=== PATIENT | male | born 1960 | race Caucasian/White ===

== ENCOUNTER → 2021-08-29 09:15 | Outpatient (CLI) | payer BC, SELFPAY ==
--- NOTE | ~2021-08-29 | CT_ITS ---
EXAMINATION: CT lung screening DATE: 08/29/2021 09:28 INDICATION: Personal history of nicotine dependence TECHNIQUE: Computed tomography (CT) of the chest was performed without intravenous contrast. The dose -length product was 225.10 mGy-cm. Automated exposure control and iterative reconstruction technique were employed. COMPARISON: No prior studies for comparison. FINDINGS: No thoracic lymphadenopathy. No significant pleural or pericardial effusion. No evidence fo r aortic aneurysm or dissection. The upper abdomen is unremarkable. There is evidence for chronic gra nulomatous disease. Mild emphysema. No focal airspace consolidation. Calcified granuloma right lower lobe. No pneumothorax. No endobronchial lesions. No lytic or blastic lesions. No acute osseous abnorm ality. IMPRESSION: 1. Lung-RADS category 1: Negative. Continue annual screening with noncontrast low-dose chest CT in 12 months. Reviewed, dictated and finalized at location A. DIRECTOR IMPRESSION: 1. Lung-RADS category 1: Negative. Continue annual screening with noncontrast l ow-dose chest CT in 12 months.
== END ==
PROVIDERS: PCP Internal Medicine; Visit Provider Internal Medicine
DX: Z87.891 Personal history of nicotine dependence (principal)
CPT/HCPCS: 71271

== ENCOUNTER 2021-12-03 00:21 | Day surgery (SDC) | payer BC, SELFPAY ==
[2021-11-19 13:39] VITALS: BMI 31.2
[2021-12-03 06:31] VITALS: BP 138/94; PULSE 101; RESP 20; TEMP 36.3; O2SAT 99; BMI 33.0
[2021-12-03] MEDS: LACTATED RINGERS 1,000 ML 150 ML IV CONT (06:40)
--- NOTE | 2021-12-03 07:17 | P.PNAN_ITS ---
Anes - Initial Pre Proc Eval Procedure: Operation Date: 12/03/21 07:30 Proposed Procedures p Screening Colonoscopy - Gunnar Holliday MD Date/Time: 12/03/21 07:17 Surgeon: Gunnar Holliday MD Pre Op Diagnosis: neoplasm screening Patient Data Age: 61 Gender: M Height: 1.83 m Weight: 110.5 kg Last Vital Signs Temp 97.4 F L 12/03/21 06:31 Pulse 101 H 12/03/21 06:31 Resp 20 12/03/21 06:31 BP 138/94 H 12/03/21 06:31 Pulse Ox 99 12/03/21 06:31 Allergies Allergy/AdvReac Type Severity Reaction Status Date / Time No Known Allergies Allergy Verified 11/19/21 13:38 Home Medications Medication Instructions Recorded Confirmed Type naproxen sodium 220 mg tablet 220 mg PO BID PRN 08/13/21 11/19/21 History Patient hx anesthesia problems: none Family hx anesthesia problems: none Results Review: All pre-operative results and documents have been reviewed as part of the pre-operative evaluation. [facility] Past Medical History Medical History (Updated 09/02/21 @ 07:33 by Ian Freeman MD) Heartburn Family History Family History (Updated 08/13/21 @ 08:50 by Keri Buckner CNA) Mother Cerebrovascular accident Grandparent Breast cancer Alcoholism Lung cancer Social History Social History (Updated 08/13/21 @ 09:12 by Keri Buckner CNA) Smoking packs per day: 1.5 Smoking cigarettes per day: 30.0 Years smoked: 40 Smoking pack-years: 60.00 Smoking status: Current every day smoker Tobacco type: cigarettes Alcohol intake: current Drinks per week: 1 Alcohol use details: Social drinking Substance use: never Substance use type: does not use Living arrangements: alone Spiritual care concerns: No Anes - Eval Final PreProcedure Day of Procedure 12/03/21 07:17 Patient weight: obese Heart: regular rate and rhythm Lungs: clear to auscultation Airway: Mallampati scale Neurological: alert and oriented Last oral intake: >/= 8 hours ASA classification: II Emergent: no Anesthetic plan: proceed Anesthesia type and monitoring: general GIVS and standard monitoring Results Review: All pre-operative results and documents have been reviewed as part of the pre-operative evaluation. Informed Consent: The patient's anesthetic plan and its attendant risks and benefits were discussed with the patient/family/POA. Questions were solicited and answers provided to the satisfaction of the patient/family/POA.
--- NOTE | 2021-12-03 07:24 | WPDGICN ---
Assessment and Plan Assessment and plan (1) Family history of colonic polyps: Code(s): Z83.71 - Family history of colonic polyps Status: Acute Assessment and Plan: Patient's father had colon polyps. For this reason screening colonoscopy has been advised. Further recommendations will be given after endoscopy. GI Consult Note Consult date/time: 12/03/21 07:24 HPI: Johnnie Atkinson is a 61 year old male Presents for screening colonoscopy. Patient reports his current weight appetite and bowel movements are normal. He denies abdominal pain. He has had no bleeding. Family history is significant his father had colon polyps. Patient's last colonoscopy 6 years ago was unremarkable. He presents today for neoplasia screening. Review of Systems Review of Systems: All systems reviewed & are unremarkable except as noted in HPI and below PMFSH Past Medical History Medical History (Updated 12/03/21 @ 07:25 by Gunnar Holliday MD) Heartburn Family History Family History (Updated 08/13/21 @ 08:50 by Keri Buckner CNA) Mother Cerebrovascular accident Grandparent Breast cancer Alcoholism Lung cancer Social History Social History (Updated 08/13/21 @ 09:12 by Keri Buckner CNA) Smoking packs per day: 1.5 Smoking cigarettes per day: 30.0 Years smoked: 40 Smoking pack-years: 60.00 Smoking status: Current every day smoker Tobacco type: cigarettes Alcohol intake: current Drinks per week: 1 Alcohol use details: Social drinking Substance use: never Substance use type: does not use Living arrangements: alone Spiritual care concerns: No Meds Home Medications and Allergies Home Medications Medication Instructions Recorded Confirmed Type naproxen sodium 220 mg tablet 220 mg PO BID PRN 08/13/21 11/19/21 History Allergies Allergy/AdvReac Type Severity Reaction Status Date / Time No Known Allergies Allergy Verified 11/19/21 13:38 Vital Signs Vital Signs - 24 hr 12/03/21 06:31 Temperature 97.4 F L Pulse Rate 101 H Respiratory Rate 20 Blood Pressure 138/94 H Pulse Oximetry 99 Exam Narrative: Physical exam reveals patient be alert. Vital signs stable. HEENT exam is unremarkable. Patient is anicteric. Lungs are clear to auscultation and percussion. Heart is without murmur or extra sounds. Abdomen bowel sounds are present soft nontender with no organomegaly. Digital external rectal exam is normal.
[2021-12-03 07:47] VITALS: BP 136/85; PULSE 85; RESP 16; O2SAT 95
[2021-12-03 07:55] VITALS: BP 131/87; PULSE 74; RESP 16; O2SAT 97
[2021-12-03 08:07] VITALS: BP 145/99; PULSE 73; RESP 14; O2SAT 99
== END 2021-12-03 08:18 | disposition home or self-care (01) ==
PROVIDERS: PCP Internal Medicine; Visit Provider Internal Medicine Gastroenterology
PROC: 0DJD8ZZ Inspection of Lower Intestinal Tract, Via Natural or Artificial Opening Endoscopic (ICD-10-PCS; CPT 45378; principal; 2021-12-03 07:30)
DX: Z12.11 Encounter for screening for malignant neoplasm of colon (principal); K64.8 Other hemorrhoids; Z83.71 Family history of colonic polyps; R12 Heartburn; F17.210 Nicotine dependence, cigarettes, uncomplicated; E66.9 Obesity, unspecified; Z68.33 Body mass index [BMI] 33.0-33.9, adult
CPT/HCPCS: 45378; J2704; J7120

== ENCOUNTER 2022-11-10 12:34 | Outpatient (CLI) | payer BC, SELFPAY ==
--- NOTE | ~2022-11-10 | US_ITS ---
EXAMINATION: US soft tissue UE LT DATE: 11/10/2022 12:56 INDICATION: Localized swelling, mass and lump, left upper extremity. TECHNIQUE: Multiple grayscale and Doppler ultrasound images of the left upper extremity were obtained . COMPARISON: Chest CT 08/29/2021 FINDINGS: In the left upper extremity near the shoulder, there is a 2.2 x 2.0 x 0.9 cm subcutaneous m ass that is slightly hyperechoic to normal subcutaneous fat with similar echotexture to subcutaneous fat. IMPRESSION: 1. 2.2 cm subcutaneous mass near left shoulder, likely a lipoma. Reviewed, dictated and finalized at location A. NESS DEVELOPMENT OFFICER
== END 2022-11-10 12:35 | disposition home or self-care (01) ==
PROVIDERS: PCP Internal Medicine; Visit Provider Surgery
DX: R22.32 Localized swelling, mass and lump, left upper limb (principal)
CPT/HCPCS: 76882

== ENCOUNTER 2022-11-20 01:22 | Day surgery (SDC) | payer BC, SELFPAY ==
[2022-11-04 17:20] VITALS: BMI 32.5
--- NOTE | 2022-11-04 17:28 | PC.NURSE ---
Addendum entered by Sarah Navarro RN 11/17/22 13:07: PT TO ARRIVE AT 1330 ON 11/20/22 FOR SURGERY AT 1430. MAY HAVE LIGHT MEAL AND MAY DRIVE SELF HOME. Original Note: Report to the Outpatient Waiting Room, entrance under the green pavilion located off [facility], at time 1300 on date 11/19/22. Planned Procedure Time: 1400. Time changes happen often and if your time is changed the preop area will call you the afternoon before. - You and your visitor will be asked to self-screen and do not enter if you have any COVID symptoms. - Only one visitor is requested with a max of two and NO children visitors are allowed at this time. - The patient visitor may be requested to leave or wait in car when not with patient due to distancing restrictions. - A mask is optional within the hospital. Take the following medications with a SIP of water the morning of surgery:N/A Medications to discontinue per physician N/A Date to take last dose N/A Please no make-up, nail tajik, hairspray, perfume, deodorant, or body powder the day of surgery. No jewelry (including any body piercings) or valuables the day of surgery, leave them at home. Please take a shower or bath the night before, or the morning of, surgery with an antibacterial soap. Wear comfortable, loose fitting clothing. Children are encouraged to wear pajamas. - Jewelry must be removed prior to entering the operating room. Rings and piercings that are not removed may be cut off. - The hospital will not accept responsibility for valuables. - Please leave all valuables, including medications, at home the day of surgery. For Pediatric surgeries, we recommend two adults accompany the child home. Follow any additional instructions given to you from your surgeon. If you or anyone in your household have experienced Covid symptoms in the past week, please notify your surgeon or the nurse liaison at the phone number below for possible testing. Telephone instructions given to Johnnie Atkinson (patient) and asked if any additional questions and then verbalized understanding. Patient advised to call surgeon office or pre surgery nurse liaison [phone] if any additional questions.
--- NOTE | 2022-11-17 13:08 | PC.NURSE ---
No changes in medial history or medications since initial interview. New pre-op instructions reviewed - denies further questions at this time.
[2022-11-20] VITALS (8 sets, daily range): BP systolic 150–166; BP diastolic 82–100; PULSE 67–86; RESP 16–20; TEMP 36.4; O2SAT 94–98
--- NOTE | 2022-11-20 11:27 | WPDHPUPDATE1 ---
History and Physical Update Update Date/Time: 11/20/22 11:27 History and Physical has been reviewed, including an updated exam of the patient. There are NO changes in the patient's condition. Risks, benefits, and alternatives have been discussed and questions answered. Patient agrees to proceed with procedure.
--- NOTE | 2022-11-20 13:23 | WPDHPUPDATE1 ---
History and Physical Update Update Date/Time: 11/20/22 13:23 History and Physical has been reviewed, including an updated exam of the patient. There are NO changes in the patient's condition. Risks, benefits, and alternatives have been discussed and questions answered. Patient agrees to proceed with procedure.
[2022-11-20] MEDS: BUPIVACAINE/EPINEPHRINE 0.5% 10 ML VIAL 20 ML INFILTRATE (14:30)
--- NOTE | 2022-11-20 15:07 | P.OP_ITS ---
Procedure Note - Detailed Date of Procedure 11/20/22 Pre-op Diagnosis Sub Q Mass Left Shoulder Post-op Diagnosis Same Procedure Performed Excision subcutaneous mass, 2 cm, left shoulder Surgeon Steve Albert MD Security Incident Handler Amanda Warren [facility] Anesthesia Local (0.5% Marcaine with epinephrine) Indications Patient has a subcutaneous nodule on the upper aspect of the left shoulder just past the sternal clavicular joint. He had an ultrasound which suggested this was a lipoma. Clinically it appears to be a lipoma. He is taken to surgery now for excision. Findings Showed a 2 cm lipoma. Description of Procedure Patient was checked in the preoperative area. The area of the mass was marked on the skin. He was taken back to surgery. Prep and drape of the left shoulder was carried out. Local was infiltrated into the skin and the deeper subcutaneous tissues. Incision was made dissection was carried down to the lipoma. Lipoma was dissected out using combination of blunt and sharp d issection. It was removed intact and completely. It was measured and sent to pathology in formalin. The wound was infiltrated with additional local anesthetic. The wound is closed in layers with 3-0 Vicryl for Shey's fascia. The skin was closed with running 4-0 Monocryl skin suture. The wound was dressed with Exofin surgical adhesive. The patient tolerated the procedure well. Sponge needle counts were correct x2. Estimated Blood Loss -5 Drains No Packing No Pathology Yes (Lipoma) Complications No immediate complications Condition Stable Disposition Same day [facility] Billing Surgery - Charge Forward: Surgery Billing (Excision 2 cm lipoma left shoulder)
== END 2022-11-20 15:10 | disposition home or self-care (01) ==
PROVIDERS: PCP Internal Medicine; Visit Provider Surgery
PROC: (CPT 23075; principal; 2022-11-20 14:30)
DX: D17.22 Benign lipomatous neoplasm of skin and subcutaneous tissue of left arm (principal); F17.210 Nicotine dependence, cigarettes, uncomplicated
CPT/HCPCS: 23075; 88304